=== PATIENT | female | born 1955 | race Caucasian/White ===

== ENCOUNTER → 2020-09-22 | Outpatient (CLI) | payer OTHER | LOC: OPSV 09-21 07:00 | DX: M05.20 Rheumatoid vasculitis with rheumatoid arthritis of unspecified site (principal) | CPT/HCPCS: 96375; 96413; 96415; J2930; J7030; J9312 ==

== ENCOUNTER → 2020-10-07 | Outpatient (CLI) | payer OTHER ==
[~2020-10-07] VITALS: Ht 167.6 cm; Wt 113.4 kg
== END ==
LOC: OPSV 07:00
DX: M05.20 Rheumatoid vasculitis with rheumatoid arthritis of unspecified site (principal)
CPT/HCPCS: 96375; 96413; 96415; J1720; J7030; J9312